=== PATIENT | female | born 1990 | race Hispanic/Latino ===

== ENCOUNTER 2019-12-21 14:33 | Emergency (ER) | payer OTHER, SELFPAY ==
[2019-12-21 14:35] VITALS: BP 135/82; PULSE 87; RESP 17; TEMP 36; O2SAT 99
[2019-12-21 15:15] LABS: Basophils Percent Auto 0.1 % (0.2-1.2); Eosinophils Percent Auto 0.1 % (0-4.4); Hematocrit 38.9 % (37.0-47.0); Hemoglobin 13.2 g/dL (12.0-15.0); Immature Granulocyte Absolute 0.06 K/mm3 (0.00-0.031); Immature Granulocyte Percent A 0.4 % (0-0.5); Lymphocytes Absolute Auto 1.95 K/mm3 (0.9-3.2); Lymphocytes Percent Auto 14.2 % (18.3-44.2); Mean Corpuscular HGB Conc 33.9 g/dl (32-36); Mean Corpuscular Hemoglobin 28.3 pg (26-34); Mean Corpuscular Volume 83.3 fl (80-100); Mean Platelet Volume 10.9 fl (7.4-10.4); Monocytes Absolute Auto 0.5 K/mm3 (0.1-0.6); Monocytes Percent Auto 3.4 % (2.6-8.5); Neutrophils Absolute Auto 11.2 K/mm3 (1.3-6.7); Neutrophils Percent Auto 81.8 % (45.5-73.1); Platelet Count Result 254 k/mm3 (150-375); Red Blood Count 4.67 M/mm3 (4.2-5.4); Red Cell Distribution Width 12.1 % (11.5-14.5); White Blood Count 13.7 K/mm3 (4.5-10.0)
[2019-12-21 15:21] LABS: Add Urine Microscopic? YES; Appearance Urine Cloudy (Clear); Bacteria Urine Trace /hpf; Bilirubin Urine Negative (Negative); Color Urine Yellow (Yellow); Glucose Urine UA Negative (Negative); Ketones Urine 2+ mg/dL (Negative); Leukocyte Esterase Ur 3+ LEU/UL (Negative); Mucus Urine Moderate /lpf; Nitrate Urine Negative (Negative); Protein Urine 1+ mg/dL (Negative); Specific Grav Ur 1.024 (1.001-1.035); Squamous Epithelial Cell Urine Many /hpf (Few); Urobilinogen Urine Negative mg/dL (<2.0); WBC Urine 21-30 /hpf
[2019-12-21 15:22] LABS: Blood Urine Negative (Negative)
[2019-12-21 15:26] LABS: Alanine Aminotransferase 18 U/L (4-35); Albumin Level 4.3 g/dL (3.5-5.1); Alkaline Phosphatase 106 U/L (38-126); Aspartate Amino Transferase 25 U/L (14-36); Bilirubin,Total 0.4 mg/dL (0.2-1.3); Blood Urea Nitrogen 9 mg/dL (7-17); Calcium 9.3 mg/dL (8.4-10.2); Carbon Dioxide 22 mmol/L (22-30); Chloride 102 mmol/L (98-107); Estimated CRCL calculation 191 ml/min; Estimated Glomerular Filt Rate > 60; Glucose 104 mg/dL (65-105); Lipase 54 U/L (23-300); Potassium 3.7 mmol/L (3.4-5.0); Sodium 134 mmol/L (137-145)
[2019-12-21] MEDS: SODIUM CHLORIDE 0.9% IV 1,000 ML 999 ML IV CONT (15:44)
[2019-12-21] MEDS: METOCLOPRAMIDE HCL INJ 10 MG/2 ML VIAL IV PUSH (15:45)
--- NOTE | 2019-12-21 15:45 | ED.GENADULT ---
HPI - General Adult General Chief complaint: Nausea/Vomiting/Diarrhea Stated complaint: , vomitting all day Time Seen by Provider: 12/21/19 15:08 History of Present Illness HPI narrative: Patient is a 29 y/o female complaining of nausea and vomiting for last 2 days. She states that she vomited 4-5 times during last 24 hours. Her vomit is mostly food material. There is no alleviating or exacerbating factor. She has no abdominal pain, diarrhea, dysuria or vaginal bleed. She has a slight headache. Of note, she is approximately 12 week . Related Data Allergies Allergy/AdvReac Type Severity Reaction Status Date / Time No Known Allergies Allergy Verified 12/21/19 14:39 Review of Systems Constitutional: Constitutional: Denies chills, Denies fever(s), Reports headache(s) and Denies weakness Eyes: Eyes: Denies blurry vision ENT: Denies headache(s) and Denies neck pain Cardiovascular: Cardiovascular: Denies chest pain and Denies dyspnea Respiratory: Respiratory: Denies cough and Denies dyspnea Gastrointestinal: Gastrointestinal: Denies abdominal pain, Denies diarrhea, Reports nausea and Reports vomiting Genitourinary: Genitourinary: Denies hematuria and Denies dysuria Musculoskeletal: Musculoskeletal: Denies back pain and Denies neck pain Neurologic: Reports headache(s) and Denies weakness PMFSH Past Medical History Medical History Chlamydia Miscarriage d&c Vaginal delivery Family History Family History Mother Diabetes mellitus Exam Const: General: no acute distress and well developed Orientation/consciousness: oriented to person, oriented to place, oriented to time and patient oriented x3 HENMT: Head: normocephalic Ears: external ears normal General nose exam: Normal external nose present Eyes: General: appearance normal, both eyes and all related structures Conjunctivae: conjunctivae normal Neck: Neck: normal visual inspection and full ROM Chest: Chest palpation & inspection: normal inspection of the chest and no tenderness Resp: Effort & Inspection: normal respiratory effort Auscultation: clear to auscultation bilaterally Cardio: Rate: regular rate Rhythm: regular rhythm GI: GI Palp: No abdominal tenderness and Yes Soft to palpation Skin: General skin exam: normal color and turgor normal Neuro: General: oriented to person, oriented to place, oriented to time and patient oriented x3 Cognition (Neuro): normal cognition Extrem: General: normal to inspection, full ROM and no pedal edema Psych: Appearance: grossly normal Mental Status: mental status grossly normal Affect: normal affect Course Reevaluation(s) Reevaluation #1: Rechecked. Patient feels better. She is able to tolerate oral intake. Date: 12/21/19 Vital Signs Vital signs: Vital Signs Temperature 36.0 C L 12/21/19 14:35 Pulse Rate 87 12/21/19 14:35 Respiratory Rate 17 12/21/19 14:35 Blood Pressure 135/82 12/21/19 14:35 Pulse Oximetry 99 12/21/19 14:35 Temperature 36.0 C L 12/21/19 14:35 Pulse Rate 87 12/21/19 14:35 Respiratory Rate 17 12/21/19 14:35 Blood Pressure 135/82 12/21/19 14:35 Pulse Oximetry 99 12/21/19 14:35 Medical Decision Making Vital Signs Vital Signs: Vital Signs Temperature 36.0 C L 12/21/19 14:35 Pulse Rate 87 12/21/19 14:35 Respiratory Rate 17 12/21/19 14:35 Blood Pressure 135/82 12/21/19 14:35 Pulse Oximetry 99 12/21/19 14:35 Temperature 36.0 C L 12/21/19 14:35 Pulse Rate 87 12/21/19 14:35 Respiratory Rate 17 12/21/19 14:35 Blood Pressure 135/82 12/21/19 14:35 Pulse Oximetry 99 12/21/19 14:35 Lab Data Result diagrams: 12/21/19 15:05 12/21/19 15:05 Labs: Lab Results 12/21/19 12/21/19 12/21/19 Range/Units 15:05 15:05 15:05 WBC 13.7 H (4.5-10.0) K/mm3 RBC 4.67 (4.2
--- NOTE | 2019-12-21 17:00 | PC.NURSE ---
Pt speaking with Dr. Carrion on phone.
[2019-12-21 20:07] VITALS: BP 118/70; PULSE 88; RESP 18; O2SAT 98
== END 2019-12-21 20:08 | disposition home or self-care (01) ==
PROVIDERS: Emergency Medicine; Emergency Provider Emergency Medicine
DX: O21.1 Hyperemesis gravidarum with metabolic disturbance (principal); Z3A.12 12 weeks gestation of pregnancy
CPT/HCPCS: 36415; 80053; 81001; 81025; 83690; 85025; 87086; 96361; 96374; 99284; J2765; J7030

== ENCOUNTER 2020-01-11 17:27 | Emergency (ER) | payer OTHER, SELFPAY ==
[2020-01-11 17:42] VITALS: BP 126/78; PULSE 96; RESP 16; TEMP 35.6; O2SAT 100
--- NOTE | 2020-01-11 17:52 | ED.NAVMDI ---
HPI - Nausea/Vomiting/Diarrhea General Chief complaint: Nausea/Vomiting/Diarrhea <Mervat Owens MD - Last Filed: 01/11/20 19:00> Stated complaint: 15 wks , vomiting <Mervat Owens MD - Last Filed: 01/11/20 19:00> Time Seen by Provider: 01/11/20 17:52 <Mervat Owens MD - Last Filed: 01/11/20 19:00> Source: patient and family <Mervat Owens MD - Last Filed: 01/11/20 19:00> Mode of arrival: ambulatory <Mervat Owens MD - Last Filed: 01/11/20 19:00> Limitations: no limitations <Mervat Owens MD - Last Filed: 01/11/20 19:00> History of Present Illness HPI Narrative: Patient is a G3, P2 currently [address] Arnold who presents for evaluation of nausea and vomiting. Patient reports numerous episodes of nonbloody, nonbilious emesis today. She states that she did not take her antiemetic medication last night and then woke up with extreme nausea this morning, try to take her medication today but then just vomited it up. She denies any abdominal pain, diarrhea or constipation. No vaginal bleeding, pelvic pain or loss of fluids. This has otherwise been uncomplicated aside from her nausea. Patient has had a ultrasound verifying IUP. She is unsure the name of the medication she takes for nausea, but per chart review Reglan is listed. Patient with previous visit to the ER approximately 3 weeks ago for nausea and emesis, patient felt improved following IV hydration and was able to be discharged home. <Mervat Owens MD - Last Filed: 01/11/20 19:00> Related Data Allergies/Adverse reactions: Allergies Allergy/AdvReac Type Severity Reaction Status Date / Time No Known Allergies Allergy Verified 12/21/19 14:39 <Mervat Owens MD - Last Filed: 01/11/20 19:00> Review of Systems Review of Systems: Narrative: CONSTITUTIONAL: Denies fever, chills CARDIOVASCULAR: Denies chest pain RESPIRATORY: Denies cough or dyspnea. GASTROINTESTINAL: Denies abdominal pain, reports nausea and vomiting GENITOURINARY: Denies dysuria or hematuria. SKIN: Denies rash or itching. MUSCULOSKELETAL: Denies back pain, joint pain, or myalgia. NEUROLOGIC: Denies headache, numbness, or weakness. <Mervat Owens MD - Last Filed: 01/11/20 19:00> [facility] Past Medical History Medical History: Medical History Chlamydia Miscarriage d&c Vaginal delivery <Mervat Owens MD - Last Filed: 01/11/20 19:00> Exam Narrative: Exam Narrative: GENERAL: Awake, alert, conversant HEAD: Normocephalic, atraumatic. EYES: PERRLA and EOMI. ENT: Nares clear, no rhinorrhea or epistaxis. Mucous membranes moist. NECK: Supple. CHEST: No respiratory distress, breathing even and non labored HEART: Regular rate, sinus rhythm ABDOMEN: Obese, non distended, non tender, fundus palpable below the umbilicus EXTREMITIES: Normal range of motion. No edema. SKIN: Warm, dry, no rash. NEURO:No focal deficits. Alert and oriented x3 <Mervat Owens MD - Last Filed: 01/11/20 19:00> Course Vital Signs Vital signs: Vital Signs Temperature 35.6 C L 01/11/20 17:42 Pulse Rate 96 01/11/20 17:42 Respiratory Rate 16 01/11/20 17:42 Blood Pressure 126/78 01/11/20 17:42 Pulse Oximetry 100 01/11/20 17:42 Temperature 35.6 C L 01/11/20 17:42 Pulse Rate 94 01/11/20 21:09 Respiratory Rate 16 01/11/20 21:09 Blood Pressure 116/72 01/11/20 21:09 Pulse Oximetry 100 01/11/20 21:09 <Mervat Owens MD - Last Filed: 01/11/20 19:00> Vital Signs Temperature 35.6 C L 01/11/20 17:42 Pulse Rate 96 01/11/20 17:42 Respiratory Rate 16 01/11/20 17:42 Blood Pressure 126/78 01/11/20 17:42 Pulse Oximetry 100 01/11/20 17:42 Temperature 35.6 C L 01/11/20 17:42 Pulse Rate 94 08/11/20 21:09 Respiratory Rate 16 01/11/20 21:09 Blood Pressure 116/72 01/11/20 21:09
[2020-01-11] MEDS: METOCLOPRAMIDE HCL INJ 10 MG/2 ML VIAL IV PUSH (18:14)
[2020-01-11] MEDS: SODIUM CHLORIDE 0.9% IV 1,000 ML 999 ML IV CONT (18:14)
[2020-01-11] MEDS: ONDANSETRON INJ 4 MG/2 ML VIAL IV PUSH (18:14)
[2020-01-11 18:35] LABS: Alanine Aminotransferase 31 U/L (4-35); Albumin Level 4.2 g/dL (3.5-5.1); Alkaline Phosphatase 109 U/L (38-126); Anion Gap 10 mmol/L (8-16); Aspartate Amino Transferase 32 U/L (14-36); Bilirubin,Total 0.4 mg/dL (0.2-1.3); Blood Urea Nitrogen 6 mg/dL (7-17); Calcium 9.2 mg/dL (8.4-10.2); Carbon Dioxide 23 mmol/L (22-30); Chloride 101 mmol/L (98-107); Estimated CRCL calculation 191 ml/min; Estimated Glomerular Filt Rate > 60; Glucose 104 mg/dL (65-105); Lipase 46 U/L (23-300); Potassium 3.9 mmol/L (3.4-5.0); Sodium 134 mmol/L (137-145)
[2020-01-11 18:54] LABS: Basophils Percent Auto 0.1 % (0.2-1.2); Eosinophils Percent Auto 0.2 % (0-4.4); Hematocrit 36.7 % (37.0-47.0); Hemoglobin 12.4 g/dL (12.0-15.0); Immature Granulocyte Absolute 0.12 K/mm3 (0.00-0.031); Immature Granulocyte Percent A 0.8 % (0-0.5); Lymphocytes Absolute Auto 2.24 K/mm3 (0.9-3.2); Mean Corpuscular HGB Conc 33.8 g/dl (32-36); Mean Corpuscular Hemoglobin 28.3 pg (26-34); Mean Corpuscular Volume 83.8 fl (80-100); Mean Platelet Volume 10.9 fl (7.4-10.4); Monocytes Absolute Auto 0.5 K/mm3 (0.1-0.6); Monocytes Percent Auto 3.6 % (2.6-8.5); Neutrophils Percent Auto 80.3 % (45.5-73.1); Platelet Count Result 256 k/mm3 (150-375); Red Blood Count 4.38 M/mm3 (4.2-5.4); Red Cell Distribution Width 12.3 % (11.5-14.5); White Blood Count 14.9 K/mm3 (4.5-10.0)
[2020-01-11 19:25] VITALS: BP 96/43; PULSE 79; RESP 18; O2SAT 100
[2020-01-11 19:29] LABS: Add Urine Microscopic? YES; Appearance Urine Cloudy (Clear); Bacteria Urine Trace /hpf; Bilirubin Urine Negative (Negative); Color Urine Yellow (Yellow); Glucose Urine UA Negative (Negative); Ketones Urine 2+ mg/dL (Negative); Leukocyte Esterase Ur 2+ LEU/UL (Negative); Mucus Urine Rare /lpf; Nitrate Urine Negative (Negative); Protein Urine 1+ mg/dL (Negative); RBC Urine 0-2 /hpf (0-2); Specific Grav Ur 1.019 (1.001-1.035); Squamous Epithelial Cell Urine Many /hpf (Few); Urobilinogen Urine Negative mg/dL (<2.0)
[2020-01-11 19:30] LABS: Blood Urine Negative (Negative)
[2020-01-11] MEDS: DEXTROSE 5%/0.45% SOD CHL 1,000 ML 1000 ML IV CONT (19:31)
[2020-01-11 20:57] VITALS: BP 104/63; PULSE 80; RESP 20; O2SAT 99
[2020-01-11 21:09] VITALS: BP 116/72; PULSE 94; RESP 16; O2SAT 100
== END 2020-01-11 21:14 | disposition home or self-care (01) ==
PROVIDERS: Emergency Medicine; Emergency Provider Emergency Medicine; PCP Obstetrics & Gynecology
DX: O21.9 Vomiting of pregnancy, unspecified (principal); O99.282 Endocrine, nutritional and metabolic diseases complicating pregnancy, second trimester; E86.0 Dehydration; Z3A.15 15 weeks gestation of pregnancy
CPT/HCPCS: 36415; 80053; 81001; 83690; 85025; 87077; 87086; 87088; 96361; 96374; 96375; 99284; J2405; J2765; J7030

== ENCOUNTER 2020-01-17 14:12 | Outpatient (CLI) | payer OTHER, SELFPAY ==
[2020-01-17 15:03] LABS: Basophils Percent Auto 0.2 % (0.2-1.2); Eosinophils Absolute Auto 0.1 K/mm3 (0-0.3); Eosinophils Percent Auto 0.5 % (0-4.4); Hematocrit 33.8 % (37.0-47.0); Hemoglobin 11.4 g/dL (12.0-15.0); Immature Granulocyte Absolute 0.06 K/mm3 (0.00-0.031); Immature Granulocyte Percent A 0.5 % (0-0.5); Lymphocytes Absolute Auto 2.13 K/mm3 (0.9-3.2); Lymphocytes Percent Auto 16.6 % (18.3-44.2); Mean Corpuscular HGB Conc 33.7 g/dl (32-36); Mean Platelet Volume 10.3 fl (7.4-10.4); Monocytes Absolute Auto 0.6 K/mm3 (0.1-0.6); Monocytes Percent Auto 4.8 % (2.6-8.5); Neutrophils Absolute Auto 9.9 K/mm3 (1.3-6.7); Neutrophils Percent Auto 77.4 % (45.5-73.1); Platelet Count Result 253 k/mm3 (150-375); Red Blood Count 4.07 M/mm3 (4.2-5.4); Red Cell Distribution Width 12.4 % (11.5-14.5); White Blood Count 12.8 K/mm3 (4.5-10.0)
[2020-01-17 15:56] LABS: Vitamin D 25 Hydroxy 36.5 ng/mL
[2020-01-17 15:57] LABS: HIV 1/2 Ab P24 Ag Result Negative (Negative)
[2020-01-17 16:19] LABS: Rubella IgG Antibody 8.2 IU/ML
[2020-01-17 16:37] LABS: Hepatitis B Surface Anti Res Positive; Hepatitis C Virus Antibody Negative (Negative)
[2020-01-17 18:14] LABS: Add Urine Microscopic? YES; Appearance Urine Clear (Clear); Bacteria Urine Trace /hpf; Bilirubin Urine Negative (Negative); Blood Urine Negative (Negative); Color Urine Straw (Yellow); Glucose Urine UA Negative (Negative); Ketones Urine Negative (Negative); Leukocyte Esterase Ur 1+ LEU/UL (NEGATIVE); Nitrate Urine Negative (Negative); Protein Urine Negative (Negative); RBC Urine 0-2 /hpf (0-2); Specific Grav Ur 1.011 (1.001-1.035); Squamous Epithelial Cell Urine Few /hpf (Few); Urobilinogen Urine Negative mg/dL (<2.0)
[2020-01-18 07:12] LABS: Rapid Plasma Reagin Non-Reactive (NonReactive)
[2020-01-19 12:57] LABS: Hepatitis B Surface Antigen Negative (Negative)
[2020-01-21 06:31] LABS: Hematocrit 35.1 % (35.0-45.0); Hemoglobin 11.8 g/dL (11.7-15.5); MCH 28.6 pg (27.0-33.0); MCV 84.9 FL (80.0-100.0); RDW 13.3 % (11.0-15.0); Red Blood Cell Count 4.13 Mill/uL (3.80-5.10)
== END 2020-01-17 14:13 | disposition home or self-care (01) ==
PROVIDERS: PCP Obstetrics & Gynecology; Visit Provider Obstetrics & Gynecology
DX: Z34.90 Encounter for supervision of normal pregnancy, unspecified, unspecified trimester (principal)
CPT/HCPCS: 36415; 81001; 82306; 83021; 84443; 85025; 86592; 86703; 86706; 86762; 86787; 86803; 86850; 86900; 86901; 87086; 87088; 87340; G0432

== ENCOUNTER 2020-02-15 13:37 | Outpatient (CLI) | payer OTHER, SELFPAY ==
[2020-02-15 14:07] LABS: Hematocrit 31.9 % (37.0-47.0); Hemoglobin 10.8 g/dL (12.0-15.0); Mean Corpuscular HGB Conc 33.9 g/dl (32-36); Mean Corpuscular Hemoglobin 28.3 pg (26-34); Mean Corpuscular Volume 83.5 fl (80-100); Mean Platelet Volume 10.1 fl (7.4-10.4); Platelet Count Result 235 k/mm3 (150-375); Red Blood Count 3.82 M/mm3 (4.2-5.4); Red Cell Distribution Width 13.6 % (11.5-14.5); White Blood Count 13.2 K/mm3 (4.5-10.0)
[2020-02-15 14:18] LABS: Anion Gap 6 mmol/L (8-16); Blood Urea Nitrogen 9 mg/dL (7-17); Calcium 8.8 mg/dL (8.4-10.2); Carbon Dioxide 23 mmol/L (22-30); Chloride 105 mmol/L (98-107); Estimated Glomerular Filt Rate > 60; Glucose 120 mg/dL (65-105); Potassium 3.9 mmol/L (3.4-5.0); Sodium 134 mmol/L (137-145); Uric Acid 5.3 mg/dL (2.5-7.5)
== END 2020-02-15 13:38 | disposition home or self-care (01) ==
PROVIDERS: PCP Obstetrics & Gynecology; Visit Provider Obstetrics & Gynecology
DX: O16.9 Unspecified maternal hypertension, unspecified trimester (principal)
CPT/HCPCS: 36415; 80048; 84443; 84550; 85027

== ENCOUNTER 2020-02-18 11:40 | Outpatient (CLI) | payer OTHER, SELFPAY ==
[2020-02-18 12:49] LABS: Total Protein Urine Random 11 mg/dL
[2020-02-18 12:50] LABS: Creatinine Urine 63.1 mg/dL
[2020-02-18 12:52] LABS: Creatinine 24 Hour Urine 1.4 gm/24 (0.8-1.8); Total Volume 24 Hour Urine 2350 ml
[2020-02-18 12:53] LABS: Total Protein Urine 24 Hr 258 MG/DAY (28-141); Total Volume 24 Hour Urine 2350 ml
== END 2020-02-18 11:41 | disposition home or self-care (01) ==
PROVIDERS: PCP Obstetrics & Gynecology; Visit Provider Obstetrics & Gynecology
DX: O16.9 Unspecified maternal hypertension, unspecified trimester (principal); Z3A.00 Weeks of gestation of pregnancy not specified
CPT/HCPCS: 81050; 82570; 84156

== ENCOUNTER 2020-03-15 13:37 | Outpatient (CLI) | payer OTHER, SELFPAY ==
[2020-03-15 15:10] LABS: Hematocrit 33.5 % (37.0-47.0); Hemoglobin 11.1 g/dL (12.0-15.0); Mean Corpuscular HGB Conc 33.1 g/dl (32-36); Mean Corpuscular Hemoglobin 28.4 pg (26-34); Mean Corpuscular Volume 85.7 fl (80-100); Mean Platelet Volume 10.3 fl (7.4-10.4); Platelet Count Result 225 k/mm3 (150-375); Red Blood Count 3.91 M/mm3 (4.2-5.4); Red Cell Distribution Width 13.5 % (11.5-14.5); White Blood Count 13.5 K/mm3 (4.5-10.0)
[2020-03-15 15:21] LABS: Glucose 1 Hour PP 50gm Dose 98 mg/dL
== END 2020-03-15 13:38 | disposition home or self-care (01) ==
PROVIDERS: PCP Obstetrics & Gynecology; Visit Provider Obstetrics & Gynecology
DX: Z34.82 Encounter for supervision of other normal pregnancy, second trimester (principal)
CPT/HCPCS: 36415; 82728; 82947; 85027

== ENCOUNTER 2020-05-13 10:06 | Outpatient (CLI) | payer OTHER, SELFPAY ==
[2020-05-13 11:02] LABS: Glucose Point of Care 91 (65-105)
[2020-05-13 12:20] LABS: Glucose 1 Hour PP 50gm Dose 146 mg/dL
[2020-05-13] MEDS: TETANUS,DIPHTHERIA,AC PERTUSSIS ADULT (0.5 ML) BOOSTRIX IM (12:25)
--- NOTE | 2020-05-13 12:42 | PC.NURSE ---
1225- Spoke with Dr. Carrion, 1 hr gtt results reviewed. Dr. Carrion will fax order for 3 hr gtt for patient to complete.
== END 2020-05-13 10:07 | disposition home or self-care (01) ==
LOC: ANHOBOP 10:07
PROVIDERS: Visit Provider Obstetrics & Gynecology
DX: Z23 Encounter for immunization (principal)
CPT/HCPCS: 36415; 82947; 90471; 90653; 90715; G0008

== ENCOUNTER 2020-06-01 07:56 | Outpatient (CLI) | payer OTHER, SELFPAY ==
[2020-06-01 08:39] LABS: Glucose Fasting Gestational 95 mg/dL (>/=95)
[2020-06-01 10:18] LABS: Glucose 1 Hour Gest 157 mg/dL (>/=180)
[2020-06-01 11:10] LABS: Glucose 2 Hour Gest 133 mg/dL (>/= 155)
[2020-06-01 12:11] LABS: Glucose 3 Hour Gest 87 mg/dL (>/=140)
== END 2020-06-01 07:57 | disposition home or self-care (01) ==
PROVIDERS: Visit Provider Obstetrics & Gynecology
DX: R73.09 Other abnormal glucose (principal)
CPT/HCPCS: 36415; 82951; 82952

== ENCOUNTER 2020-06-03 10:14 | Outpatient (RCR) | payer OTHER, SELFPAY ==
[2020-03-18 14:22] LABS: Add Urine Microscopic? YES; Appearance Urine Cloudy (Clear); Bacteria Urine Trace /hpf; Bilirubin Urine Negative (Negative); Blood Urine Negative (Negative); Color Urine Yellow (Yellow); Glucose Urine UA Negative (Negative); Ketones Urine Negative (Negative); Leukocyte Esterase Ur Trace LEU/UL (Negative); Mucus Urine Rare /lpf; Nitrate Urine Negative (Negative); Protein Urine Negative (Negative); RBC Urine 0-2 /hpf (0-2); Specific Grav Ur 1.013 (1.001-1.035); Squamous Epithelial Cell Urine Many /hpf (Few); Urobilinogen Urine Negative mg/dL (<2.0)
[2020-03-18 14:47] VITALS: BP 105/65; PULSE 83
[2020-05-13 12:24] VITALS: BP 116/66; PULSE 84
--- NOTE | 2020-05-13 12:43 | PC.NURSE ---
1225- Spoke with Dr. Carrion about NST with variables, XOCHILT. Orders to discharge to home with twice weekly nsts and once weekly xochilt's.
[2020-05-16 14:16] VITALS: BP 116/67; PULSE 104
[2020-05-19 09:30] VITALS: BP 123/74; PULSE 97
[2020-05-23 13:50] VITALS: BP 111/77; PULSE 110
--- NOTE | ~2020-06-03 | US_ITS ---
EXAMINATION: US OB limited DATE: 05/13/2020 11:27 INDICATION: Increased amniotic fluid seen at outside institution during third trimester . TECHNIQUE: Real-time ultrasound of the pelvis was performed. The interpreting radiologist was not pre sent for the study. COMPARISON: None. FINDINGS: There is a single living fetus in vertex presentation. The placenta is posterior. heart rate i s 135 beats per minute (bpm). The amniotic fluid index is 20.8 cm, which is normal (5th%-95%: 8.3-24. 5 cm at 33 weeks estimated gestational age). IMPRESSION: 1. Single living fetus in vertex presentation with heart rate of 135 bpm. 2. Normal amniotic fluid index of 20.8 cm. Reviewed, dictated and finalized at location A. STANT SUPERINTENDENT IMPRESSION: 1. Single living fetus in vertex presentation with heart rate of 135 bpm . 2. Normal amniotic fluid index of 20.8 cm.
--- NOTE | ~2020-06-03 | US_ITS ---
EXAMINATION: US OB limited DATE: 06/03/2020 11:08 INDICATION: Hypertension during third trimester . TECHNIQUE: Real-time ultrasound of the pelvis was performed. The interpreting radiologist was not pre sent for the study. COMPARISON: 05/19/2020 FINDINGS: There is a single living fetus in vertex presentation. The placenta is right posterior. heart rate is 139 beats per minute (bpm). The amniotic fluid index is 15.7 cm, which is normal (5th%-95%: 7 .7-24.9 cm at 36 weeks estimated gestational age). IMPRESSION: 1. Single living fetus in vertex presentation with heart rate of 139 bpm. 2. Normal amniotic fluid index of 15.7 cm. Reviewed, dictated and finalized at location A. BING ASSEMBLER IMPRESSION: 1. Single living fetus in vertex presentation with heart rate of 139 bpm . 2. Normal amniotic fluid index of 15.7 cm.
--- NOTE | ~2020-06-03 | US_ITS ---
EXAMINATION: US OB limited DATE: 05/19/2020 09:46 INDICATION: Abnormal blood sugar. Third trimester. TECHNIQUE: Real-time ultrasound of the pelvis was performed. COMPARISON: Ultrasound 05/13/2020 FINDINGS: There is a single fetus in vertex presentation. The placenta is posterior. heart rate is 144 b eats per minute (bpm). The amniotic fluid index is 23.0 cm, which is normal. IMPRESSION: 1. Single living fetus in vertex presentation. Reviewed, dictated and finalized at location A. R ASSEMBLER
[2020-06-03 11:54] VITALS: BP 105/61; PULSE 100
== END 2020-06-16 23:59 | disposition home or self-care (01) ==
LOC: ANHOBOP 10:14
PROVIDERS: Visit Provider Obstetrics & Gynecology
DX: O36.8120 Decreased fetal movements, second trimester, not applicable or unspecified (principal); Z3A.25 25 weeks gestation of pregnancy; Z3A.33 33 weeks gestation of pregnancy; Z3A.34 34 weeks gestation of pregnancy; Z3A.36 36 weeks gestation of pregnancy
CPT/HCPCS: 59025; 76815; 81001

== ENCOUNTER 2020-06-15 19:53 | Inpatient (IN) | payer OTHER, SELFPAY ==
[2020-06-15] VITALS (15 sets, daily range): BP systolic 91–121; BP diastolic 55–84; PULSE 75–130; BMI 44.1
[2020-06-15 20:29] LABS: Basophils Percent Auto 0.2 % (0.2-1.2); Eosinophils Absolute Auto 0.1 K/mm3 (0-0.3); Eosinophils Percent Auto 1.1 % (0-4.4); Hematocrit 34.6 % (37.0-47.0); Hemoglobin 11.7 g/dL (12.0-15.0); Immature Granulocyte Absolute 0.07 K/mm3 (0.00-0.031); Immature Granulocyte Percent A 0.6 % (0-0.5); Lymphocytes Absolute Auto 2.32 K/mm3 (0.9-3.2); Lymphocytes Percent Auto 19.1 % (18.3-44.2); Mean Corpuscular HGB Conc 33.8 g/dl (32-36); Mean Corpuscular Hemoglobin 28.3 pg (26-34); Mean Corpuscular Volume 83.6 fl (80-100); Mean Platelet Volume 10.2 fl (7.4-10.4); Monocytes Absolute Auto 0.8 K/mm3 (0.1-0.6); Monocytes Percent Auto 6.8 % (2.6-8.5); Neutrophils Absolute Auto 8.8 K/mm3 (1.3-6.7); Neutrophils Percent Auto 72.2 % (45.5-73.1); Platelet Count Result 227 k/mm3 (150-375); Red Blood Count 4.14 M/mm3 (4.2-5.4); Red Cell Distribution Width 13.7 % (11.5-14.5); White Blood Count 12.1 K/mm3 (4.5-10.0)
[2020-06-15] MEDS: DINOPROSTONE 10 MG VAG INSERT VAGINAL (20:40)
--- NOTE | 2020-06-15 20:52 | LDADM ---
This patient, Giselle Lopez, was admitted to Labor/Delivery/Recovery 103 on 06/15/20 at 19:53. Plans for labor, pain management and were discussed with patient. Patient/family oriented to hospital policies and general routines including ID bracelet, bed and alarms, visiting hours, pain management, procedures, bathroom and other care routines, personal items, smoking policy, room service/diet and guest tray routines, security routines, and visiting hours. Patient/Family are encouraged to report perceived risks to care and to ask questions if they do not understand what they are told or what they should do. See OBIX for further documentation.
[2020-06-15 22:07] LABS: HIV 1/2 Ab P24 Ag Result Negative (Negative)
[2020-06-16] VITALS (101 sets, daily range): BP systolic 81–135; BP diastolic 37–119; PULSE 57–137; RESP 16; TEMP 36.3–36.7; O2SAT 94–100
--- NOTE | 2020-06-16 07:09 | WPDANESEPP ---
Anes - Eval Pre Procedure Procedure: labor epidural Date/Time: 06/16/20 07:09 Surgeon: Murali Pre Op Diagnosis: IOL Patient Data Age: 29 Gender: F Height: 5 ft 7 in Weight: 128 kg Last Vital Signs Pulse 99 06/16/20 01:01 BP 129/91 H 06/16/20 01:01 Allergies Allergy/AdvReac Type Severity Reaction Status Date / Time No Known Allergies Allergy Verified 06/14/20 13:50 Home Medications Medication Instructions Recorded Confirmed Type prenat.vits,carlos,[id number] 1 tablet PO DAILY 02/15/20 06/16/20 History ferrous sulfate 325 mg PO DAILY 03/18/20 06/16/20 History Laboratory Tests 06/15/20 06/15/20 06/15/20 20:16 20:16 20:16 WBC 12.1 K/mm3 H K/mm3 (4.5-10.0) RBC 4.14 M/mm3 L M/mm3 (4.2-5.4) Hgb 11.7 g/dL L g/dL (12.0-15.0) Hct 34.6 % L % (37.0-47.0) MCV 83.6 fl fl (80-100) MCH 28.3 pg pg (26-34) MCHC 33.8 g/dl g/dl (32-36) RDW 13.7 % % (11.5-14.5) Plt Count 227 k/mm3 k/mm3 (150-375) MPV 10.2 fl fl (7.4-10.4) Immature Gran % (Auto) 0.6 % H % (0-0.5) Neut % (Auto) 72.2 % % (45.5-73.1) Lymph % (Auto) 19.1 % % (18.3-44.2) Lassen % (Auto) 6.8 % % (2.6-8.5) Eos % (Auto) 1.1 % % (0-4.4) Baso % (Auto) 0.2 % % (0.2-1.2) Lymph # (Auto) 2.32 K/mm3 K/mm3 (0.9-3.2) Lassen # (Auto) 0.8 K/mm3 H K/mm3 (0.1-0.6) Eos # (Auto) 0.1 K/mm3 K/mm3 (0-0.3) Baso # (Auto) 0.0 K/mm3 K/mm3 (0.0-0.1) Abs Immat Gran (auto) 0.07 K/mm3 H K/mm3 (0.00-0.031) Absolute Neuts (auto) 8.8 K/mm3 H K/mm3 (1.3-6.7) Absolute Nucleated RBC 0.0 K/mm3 K/mm3 (0.0-0.012) Nucleated RBC % 0.0 % % (0.0-0.2) RPR Pending HIV 1&2 Ab/P24 Ag 4thGn Blood Type A Positive Antibody Screen Negative 06/15/20 20:16 WBC RBC Hgb Hct MCV MCH MCHC RDW Plt Count MPV Immature Gran % (Auto) Neut % (Auto) Lymph % (Auto) Lassen % (Auto) Eos % (Auto) Baso % (Auto) Lymph # (Auto) Lassen # (Auto) Eos # (Auto) Baso # (Auto) Abs Immat Gran (auto) Absolute Neuts (auto) Absolute Nucleated RBC Nucleated RBC % RPR HIV 1&2 Ab/P24 Ag 4thGn Negative (Negative) Blood Type Antibody Screen : gestational age (K[facility] 06/30/20) Patient hx anesthesia problems: none Family hx anesthesia problems: none [facility] Past Medical History Medical History (Updated 06/16/20 @ 07:09 by Isidro Ortiz CRNA) Chlamydia Miscarriage d&c Morbid obesity Vaginal delivery Family History Family History Mother Diabetes mellitus Social History Social History Smoking status: Never smoker Substance use: never Gender identity (if verbalized by the patient): Female Spiritual care concerns: No Exam Day of Procedure 06/16/20 07:09 Patient weight: morbidly obese Heart: regular rate and rhythm Lungs: clear to auscultation and normal air movement Neurological: alert and oriented
--- NOTE | 2020-06-16 07:53 | PM.IMHP ---
H&P: HPI History of Present Illness Date/Time: 06/16/20 07:53 Chief Complaint: Medical induction of labor Narrative: Giselle Lopez is a 29 year old female admitted for MIL for LGA. LMP 09/24/19 EDC 06/30/20 consistent with 20 week ultrasound. She has been followed by [facility] and they recommended MIL at 38 weeks due to higher risk factor for demise poor outcome with the LGA and BMI. She has been informed of risk and benefits of labor induction versus spontaneous labor and she desires induction. PNC also significant for polyhydramnios which did resolve. She had normal glucose testing at 24-28 weeks and then had another one hour with diagnosis of polyhydramnios. It was elevated and the three hour was normal. Labs reviewed. GBS neg. Review of Systems Review of Systems: All systems reviewed & are unremarkable except as noted in HPI and below Constitutional: Constitutional: Reports no additional constitutional complaints and Denies headache(s) Eyes: Eyes: Denies spots in vision ENT: Reports system reviewed and no additional complaints, except as documented and Denies headache(s) Cardiovascular: Cardiovascular: Denies chest pain and Denies dyspnea Respiratory: Respiratory: Denies dyspnea Gastrointestinal: Gastrointestinal: Reports no additional gastrointestinal complaints Genitourinary: Genitourinary: Reports amenorrhea Musculoskeletal: Musculoskeletal: Reports no additional musculoskeletal complaints Integumentary/Breasts: Skin/Breast: Denies breast mass and Denies rash Neurologic: Denies headache(s) Psychiatric: Psychiatric: Reports no additional psychiatric complaints PMFSH Past Medical History Medical History Chlamydia Miscarriage d&c Morbid obesity Vaginal delivery Family History Family History Mother Diabetes mellitus Social History Social History Smoking status: Never smoker Substance use: never Gender identity (if verbalized by the patient): Female Spiritual care concerns: No Meds Home Medications and Allergies Home Medications Medication Instructions Recorded Confirmed Type prenat.vits,carlos,[id number] 1 tablet PO DAILY 02/15/20 06/16/20 History ferrous sulfate 325 mg PO DAILY 03/18/20 06/16/20 History Allergies Allergy/AdvReac Type Severity Reaction Status Date / Time No Known Allergies Allergy Verified 06/14/20 13:50 Vital Signs Vital Signs - 24 hr 06/15/20 20:17 06/15/20 20:31 06/15/20 20:46 Pulse Rate 130 H 123 H 93 Blood Pressure 91/66 L 99/71 L 101/65 06/15/20 21:01 06/15/20 21:16 06/15/20 21:31 Pulse Rate 97 101 H 75 Blood Pressure 105/67 105/78 110/62 06/15/20 21:46 06/15/20 22:01 06/15/20 22:16 Pulse Rate 100 78 89 Blood Pressure 109/84 106/63 116/55 L 06/15/20 22:31 06/15/20 22:46 06/15/20 23:01 Pulse Rate 104 H 85 89 Blood Pressure 101/77 120/73 120/78 06/15/20 23:16 06/15/20 23:31 06/15/20 23:46 Pulse Rate 112 H 96 90 Blood Pressure 104/64 109/77 121/76 06/16/20 00:01 06/16/20 00:16 06/16/20 00:31 Pulse Rate 103 H 118 H 86 Blood Pressure 116/71 118/66 115/86 06/16/20 00:46 06/16/20 01:01 Pulse Rate 90 99 Blood Pressure 117/72 129/91 H Exam Const: General: no acute distress Eyes: General: appearance normal, both eyes and all related structures Resp: Effort & Inspection: normal respiratory effort Cardio: Rate: regular rate GI: Other: Gravid no fundal tenderness no right upper quadrant pain Skin: General skin exam: no rashes or lesions noted Neuro: Cognition (Neuro): normal cognition Extrem: General: normal to inspection Psych: Mental Status: mental status grossly normal H&P: Results Labs Labs: Short CBC 06/15/20 Range/Units 20:16 WBC 12.1 H (4.5-10.0) K/mm3 Hgb 11.7 L (12.0-15.0) g/dL Hct 34.6 L
--- NOTE | 2020-06-16 08:08 | PM.OBPNLAB ---
Pain Control Date/time seen: 06/16/20 08:08 FHT 140, Cat 1, irreg ctx, she rates as 8. Cervidil removed. Cervix 2.5/75/-2. AROM clear. She desires epidural.
[2020-06-16] MEDS: LACTATED RINGERS 1,000 ML 125 ML IV CONT ×3 (08:09→11:10)
[2020-06-16] MEDS: OXYTOCIN 30 UNITS/NS 500 ML 30 UNITS/500 ML BAG IV CONT (10:00)
[2020-06-16 10:23] LABS: Rapid Plasma Reagin Non-Reactive (NonReactive)
[2020-06-16] MEDS: OXYTOCIN 30 UNITS/NS 500 ML 30 UNITS/500 ML BAG 125 UNITS IV CONT (15:01)
--- NOTE | 2020-06-16 15:13 | P.PCNOB_ITS ---
OB - Delivery Note Procedure Delivery date: 06/16/20 Procedure: Spontaneous vaginal delivery. events: Labor Induction and Polyhydramnios Induction method: per cervidil protocol Delivery augmentation: rupture of membranes and pitocin Delivery monitor: external FHT Route of delivery: Indication for instrumentation: other (1.Large for gestational age 2. Large BMI) Laceration Description: Perineal - 1st Degree Delivery repair: vicryl (3.0) Specimen: No Quantitative Blood Loss (ml): 150 Anesthesia type: Epidural Disposition: floor Complications: None Narrative: Patient admitted for [facility] for LGA/ large BMI due to increase risk of distress, demise per [facility] recommendation. Patient agreed to induction. She presented on 06/15/20 for cervidil. Cervidil was removed am of 06/16/20 after 11 hours. Cervix was 2/75%/-2. She had AROM 0800 clear. She received epidural. She progressed to active labor. She delivered a female . was vigorously crying. She was placed on maternal abdomen. Delayed cord clamping aftetr 30sec and cord apulsatile. Placenta delivered spontenously and intact. Small first degree laceration repaired with 3.0 vicryl interrupted. Hemostasis noted. Patient tolerated procedure well. Baby Date of : 06/16/20 Time of : 14:45 Weeks of gestation at delivery: 38 Infant gender: Female Weight (pounds): 7 Weight (ounces): 15 presentation: vertex position: Right Occiput Anterior Placenta delivery description: Spontaneous cord vessel description: Clamped/Cut and Delayed Cord Clamping score one minute: 9 score five minutes: 9
[2020-06-16] MEDS: BENZOCAINE 20% AER SPR (*SP) 56 GM CAN 1 SPRAY TOPICAL (15:34)
[2020-06-16] MEDS: WITCH HAZEL 40 PADS 1 PAD TOPICAL (15:34)
--- NOTE | 2020-06-16 17:20 | PC.NURSE ---
Patient transferred to post room #282 via wheelchair. Support person present. Oriented to unit, room, information board, rooming in, admission packet and security measures. Patient verbalizes understanding.
[2020-06-17] MEDS: IBUPROFEN 600 MG TABLET PO (04:46)
[2020-06-17 05:33] LABS: Hematocrit 33.6 % (37.0-47.0); Hemoglobin 11.4 g/dL (12.0-15.0)
[2020-06-17 06:45] VITALS: BP 117/82; PULSE 71; RESP 16; TEMP 36.4; O2SAT 100
[2020-06-17] MEDS: MULTIVIT/MIN/PREN/FOL AC/IRON TABLET 1 TAB PO (06:54)
--- NOTE | 2020-06-17 08:38 | WPDANLDPN2 ---
Anes-Prog Note L&D Date/Time: 06/17/20 08:38 Comfortable throughout: labor and delivery Neuraxial method: epidural Epidural/Spinal procedure site: clean & non-tender Neuro status: Neuro function grossly intact. Cardiovascular status: normal Respiratory status: normal Airway patency: baseline Mental status: baseline Post-Op hydration status: normal Vital Signs: Last Vital Signs Temp 36.4 C 06/17/20 06:45 Pulse 71 06/17/20 06:45 Resp 16 06/17/20 06:45 BP 117/82 06/17/20 06:45 Pulse Ox 100 06/17/20 06:45 Pain score (VAS): 3 Post-procedural complaints: none Patient feedback: Patient satisfied with anesthetic care.
--- NOTE | 2020-06-17 09:13 | PM.OBPNVD ---
OB - PN: Subj Subjective Date/time seen: 06/17/20 09:13 Patient doing well this AM. Pain well controlled with medication. Denies any headache, chest pain, SOB, N/V. Minimal lochia. Ambulating without difficulty. OB - PN: Obj Data Labs CBC & Chem 7: 06/17/20 04:41 Labs: Laboratory Results - last 24 hr 06/15/20 06/17/20 20:16 04:41 Hgb 11.4 L Hct 33.6 L RPR Non-reactive OB - PN A/P Assessment and Plan (1) Normal spontaneous vaginal delivery: Code(s): O80 - Encounter for full-term uncomplicated delivery Status: Acute Assessment and Plan: PPD#1 doing well continue routine care requesting PPD#1 discharge if infant cleared, which I think is reasonable emergency precautions reviewed f/u in office in 4-6 weeks for visit Time Spent With Patient Time: Total time spent is greater than 50% in coordination of care (as documented) at patient's floor/unit and/or counseling patient: Exam Const: General: cooperative, healthy appearing, comfortable and no acute distress GI: Inspection: non-distended and obesity GI Palp: Yes Soft to palpation and No Tenderness to palpation present (GI) Other: fundus firm below umbilicus Extrem: Right lower extremity: no edema Left lower extremity: no edema Other: no calf tenderness
--- NOTE | 2020-06-17 09:15 | PM.OBDSVD ---
DS: Admitting Diagnosis Admitting Diagnosis Admitting Diagnosis: induction of labor OB - DS: Summary OB Procedures : None OB Procedures Intrapartum: Spontaneous Vag Delivery OB Procedures: : None Time Spent with Patient Time attestation: Total time spent providing and/or coordinating discharge services: DS: Data Data Completed and Pending Labs on day of discharge: Labs from last 24 hours 06/17/20 06/15/20 04:41 20:16 Hgb 11.4 L Hct 33.6 L RPR Non-reactive Discharge Plan Discharge Attending physician on discharge: Alix Pal Discharging Clinician: Alix Pal Anticipated Discharge Date/Time: 06/17/20 09:16 Patient Disposition: Home, Self-Care Activity: as tolerated and pelvic rest Diet: regular Discharge Instructions: Call office ([phone]) to schedule a visit in 4-6 weeks. You may take Ibuprofen 600mg every 6 hours as needed for pain. Pain medication may make you constipated. It may be helpful to take an [id number] stool softener, such as Colace and/or Senokot, along with the pain medication to help lessen constipation. Call office or go to ED for pain not controlled with medication, headache, chest pain, shortness of breath, fever, chills, persistent nausea or vomiting, severe abdominal pain, heavy vaginal bleeding >2 pads/hour, foul vaginal discharge or odor, or problems with your breasts. Patient Instructions: Antibiotic Form Stand Alone Forms: General Discharge Information Follow-up/Referrals: Ariel Carrion MD [Physician] - Discharge Medications: Continued prenat.vits,carlos,[id number] Tablet 1 tablet PO DAILY RF: 0 Discontinued ferrous sulfate 325 mg (65 mg iron) Tablet 325 mg PO DAILY RF: 0 Date of admission: 06/15/20 19:53 Primary Care Provider: PHYSICIAN,AIR OPERATIONS MANAGER Admitting Provider: Ariel Carrion Attending physician on admission: Ariel Carrion Condition: Stable
[2020-06-17] MEDS: MEASLES,MUMPS,RUBELLA VACCINE 0.5 ML VIAL SUB-Q (14:07)
[2020-06-19 10:02] VITALS: BP 123/87; PULSE 76; RESP 20; TEMP 36.6; O2SAT 99
== END 2020-06-17 16:15 | disposition home or self-care (01) | DRG 807 ==
LOC: ANHOB2 06-17 09:17 → ANHLDR 06-20 11:28 → ANHOB2 06-20 11:28
PROVIDERS: Admitting Provider Obstetrics & Gynecology; Visit Provider Student in an Organized Health Care Education/Training Program
DX: O36.63X0 Maternal care for excessive fetal growth, third trimester, not applicable or unspecified (principal); Z37.0 Single live birth; Z3A.38 38 weeks gestation of pregnancy; O36.8330 Maternal care for abnormalities of the fetal heart rate or rhythm, third trimester, not applicable or unspecified; O70.0 First degree perineal laceration during delivery; O99.214 Obesity complicating childbirth; E66.01 Morbid (severe) obesity due to excess calories; O40.3XX0 Polyhydramnios, third trimester, not applicable or unspecified
CPT/HCPCS: 36415; 85014; 85018; 85025; 86592; 86703; 86850; 86900; 86901; 90710; A9270; G0432; J2590; J2795; J7120

== ENCOUNTER 2021-10-18 11:11 | Outpatient (CLI) | payer OTHER, SELFPAY ==
[2021-10-20 11:16] LABS: Progesterone 8.5 ng/mL (***)
== END 2021-10-18 11:12 | disposition home or self-care (01) ==
LOC: ANHLAB 11:13
PROVIDERS: Visit Provider Obstetrics & Gynecology
DX: N91.2 Amenorrhea, unspecified (principal)
CPT/HCPCS: 36415; 84144; 84702

== ENCOUNTER 2021-11-06 11:10 | Outpatient (CLI) | payer OTHER, SELFPAY ==
[2021-11-06 11:39] LABS: Appearance Urine Slightly Cloudy (Clear); Bilirubin Urine Negative (Negative); Color Urine Yellow (Yellow); Glucose Urine UA Negative (Negative); Ketones Urine Negative (Negative); Leukocyte Esterase Ur Trace LEU/UL (NEGATIVE); Nitrate Urine Negative (Negative); Protein Urine Negative (Negative); Urobilinogen Urine 0.2 mg/dL (<2.0)
[2021-11-06 11:46] LABS: Add Urine Microscopic? YES; Blood Urine Trace-Intact (Negative); RBC Urine 0-2 /hpf (0-2); Squamous Epithelial Cell Urine Few /hpf (Few)
[2021-11-06 11:47] LABS: Basophils Percent Auto 0.3 % (0.2-1.2); Eosinophils Absolute Auto 0.1 K/mm3 (0-0.3); Hematocrit 38.4 % (37.0-47.0); Hemoglobin 12.9 g/dL (12.0-15.0); Immature Granulocyte Absolute 0.03 K/mm3 (0.00-0.031); Immature Granulocyte Percent A 0.3 % (0-0.5); Lymphocytes Absolute Auto 2.93 K/mm3 (0.9-3.2); Mean Corpuscular HGB Conc 33.6 g/dl (32-36); Mean Corpuscular Volume 83.5 fl (80-100); Mean Platelet Volume 10.4 fl (7.4-10.4); Monocytes Absolute Auto 0.7 K/mm3 (0.1-0.6); Monocytes Percent Auto 6.4 % (2.6-8.5); Neutrophils Absolute Auto 7.4 K/mm3 (1.3-6.7); Platelet Count Result 287 k/mm3 (150-375); Red Cell Distribution Width 12.4 % (11.5-14.5); White Blood Count 11.3 K/mm3 (4.5-10.0)
[2021-11-06 12:20] LABS: Vitamin D 25 Hydroxy 30.8 ng/mL
[2021-11-06 12:44] LABS: Hepatitis B Surface Antigen Negative (Negative)
[2021-11-06 12:51] LABS: Hepatitis C Virus Antibody Negative (Negative)
[2021-11-06 14:16] LABS: Rapid Plasma Reagin Non-Reactive (NonReactive)
== END 2021-11-06 11:11 | disposition home or self-care (01) ==
PROVIDERS: Visit Provider Obstetrics & Gynecology
DX: Z34.90 Encounter for supervision of normal pregnancy, unspecified, unspecified trimester (principal)
CPT/HCPCS: 36415; 81001; 82306; 84443; 85025; 86592; 86762; 86787; 86803; 86900; 86901; 87077; 87086; 87186; 87340

== ENCOUNTER 2022-01-03 13:21 | Outpatient (CLI) | payer OTHER, SELFPAY ==
[2022-01-03 15:34] LABS: HIV 1/2 Ab P24 Ag Result Negative (Negative)
[2022-01-03 16:56] LABS: Rubella IgG Antibody 19.6 IU/ML
== END 2022-01-03 13:22 | disposition home or self-care (01) ==
LOC: ANHLAB 13:23
PROVIDERS: Visit Provider Obstetrics & Gynecology
DX: Z34.92 Encounter for supervision of normal pregnancy, unspecified, second trimester (principal); Z3A.00 Weeks of gestation of pregnancy not specified
CPT/HCPCS: 36415; 86703; 86762; 86850; G0432

== ENCOUNTER 2022-03-21 11:03 | Outpatient (CLI) | payer OTHER, SELFPAY ==
[2022-03-21 12:34] LABS: Basophils Percent Auto 0.1 % (0.2-1.2); Eosinophils Absolute Auto 0.2 K/mm3 (0-0.3); Eosinophils Percent Auto 1.4 % (0-4.4); Hematocrit 34.2 % (37.0-47.0); Hemoglobin 11.2 g/dL (12.0-15.0); Immature Granulocyte Absolute 0.06 K/mm3 (0.00-0.031); Immature Granulocyte Percent A 0.5 % (0-0.5); Lymphocytes Absolute Auto 2.13 K/mm3 (0.9-3.2); Lymphocytes Percent Auto 18.1 % (18.3-44.2); Mean Corpuscular HGB Conc 32.7 g/dl (32-36); Mean Corpuscular Hemoglobin 28.2 pg (26-34); Mean Corpuscular Volume 86.1 fl (80-100); Mean Platelet Volume 9.8 fl (7.4-10.4); Monocytes Absolute Auto 0.6 K/mm3 (0.1-0.6); Monocytes Percent Auto 4.9 % (2.6-8.5); Neutrophils Absolute Auto 8.8 K/mm3 (1.3-6.7); Platelet Count Result 255 k/mm3 (150-375); Red Blood Count 3.97 M/mm3 (4.2-5.4); Red Cell Distribution Width 13.4 % (11.5-14.5); White Blood Count 11.7 K/mm3 (4.5-10.0)
[2022-03-21 12:45] LABS: Glucose 1 Hour PP 50gm Dose 144 mg/dL
== END 2022-03-21 11:04 | disposition home or self-care (01) ==
PROVIDERS: Visit Provider Obstetrics & Gynecology
DX: Z34.82 Encounter for supervision of other normal pregnancy, second trimester (principal)
CPT/HCPCS: 36415; 82947; 85025

== ENCOUNTER 2022-06-01 05:06 | Observation (INO) | payer OTHER, SELFPAY ==
[2022-06-01 04:38] VITALS: BP 125/82; PULSE 82
[2022-06-01 05:07] VITALS: BMI 47.7
--- NOTE | 2022-06-01 05:07 | LDADM ---
This patient, Giselle Lopez, was admitted to Labor/Delivery/Recovery 108 on 06/01/22 at 04:18. Plans for labor, pain management and were discussed with patient. Patient/family oriented to hospital policies and general routines including ID bracelet, bed and alarms, visiting hours, pain management, procedures, bathroom and other care routines, personal items, smoking policy, room service/diet and guest tray routines, security routines, and visiting hours. Patient/Family are encouraged to report perceived risks to care and to ask questions if they do not understand what they are told or what they should do. See OBIX for further documentation.
[2022-06-01 08:14] VITALS: BP 110/69; PULSE 82
--- NOTE | 2022-06-21 09:07 | PM.OBTRLD ---
OB - Triage/Final Diagnosis Visit Information Comments/Additional reasons for admission: I have assessed the risk for this patient, Giselle Lopez, and determined that she would benefit from observation care. Final Diagnosis (1) False labor: Code(s): O47.9 - False labor, unspecified Status: Acute
== END 2022-06-01 08:25 | disposition home or self-care (01) ==
PROVIDERS: Admitting Provider Obstetrics & Gynecology; Visit Provider Obstetrics & Gynecology
DX: O47.1 False labor at or after 37 completed weeks of gestation (principal); Z3A.37 37 weeks gestation of pregnancy
CPT/HCPCS: G0378; G0379

== ENCOUNTER 2022-06-06 11:40 | Outpatient (RCR) | payer OTHER, SELFPAY ==
[2022-05-28 11:22] VITALS: BP 126/79; PULSE 96
[2022-06-03 10:57] VITALS: BP 121/79; PULSE 105
[2022-06-05 20:15] VITALS: BP 136/80; PULSE 90
--- NOTE | 2022-06-05 20:21 | PC.NURSE ---
Dr. Patiño called via senior underwriter and informed that patient came in due to decreased movement and has felt movement since arrival, CAT1 tracing with one contraction noted. Orders that patient may discharge to home.
--- NOTE | ~2022-06-06 | US_ITS ---
EXAMINATION: US OB limited w BPP DATE: 06/06/2022 13:49 INDICATION: Decreased movement. Third trimester. TECHNIQUE: Real-time pelvic ultrasound was performed. COMPARISON: None. FINDINGS: There is a single living fetus in vertex presentation. The placenta is posterior. heart rate i s 126 beats per minute (bpm). The amniotic fluid index is 15.7 cm, which is normal. Biophysical profile performed by the technologist: breathing (30 sec sustained breathing in 30 minutes): 2 out of 2 movement (3 gross body movements in 30 minutes): 2 out of 2 tone (one episode of ocmkerj-pkkvaanfd-zbjtydf limb movement): 2 out of 2 Amniotic fluid pocket (2 cm): 2 out of 2 Total score: 8 out of 8 IMPRESSION: 1. Single living fetus in vertex presentation. 2. Biophysical profile 8 out of 8. Reviewed, dictated and finalized at location A. RMATION ASSURANCE ANALYST
[2022-06-06 13:30] VITALS: BP 116/84; PULSE 101
== END 2022-06-29 07:47 | disposition home or self-care (01) ==
LOC: ANHOBOP 11:40
PROVIDERS: Visit Provider Obstetrics & Gynecology
DX: O36.63X0 Maternal care for excessive fetal growth, third trimester, not applicable or unspecified (principal); Z3A.37 37 weeks gestation of pregnancy; O99.213 Obesity complicating pregnancy, third trimester; O36.8130 Decreased fetal movements, third trimester, not applicable or unspecified; Z3A.38 38 weeks gestation of pregnancy
CPT/HCPCS: 59025; 76815; 76819

== ENCOUNTER 2022-06-10 06:37 | Inpatient (IN) | payer OTHER, SELFPAY ==
[2022-06-10] VITALS (130 sets, daily range): BP systolic 79–138; BP diastolic 20–99; PULSE 25–122; RESP 16–18; TEMP 36.2–37.1; O2SAT 93–100; BMI 46.0
--- NOTE | 2022-06-10 07:10 | LDADM ---
This patient, Giselle Lopez, was admitted to Labor/Delivery/Recovery 107 on 06/10/22 at 06:37. Plans for labor, pain management and were discussed with patient. Patient/family oriented to hospital policies and general routines including ID bracelet, bed and alarms, visiting hours, pain management, procedures, bathroom and other care routines, personal items, smoking policy, room service/diet and guest tray routines, security routines, and visiting hours. Patient/Family are encouraged to report perceived risks to care and to ask questions if they do not understand what they are told or what they should do. See OBIX for further documentation.
[2022-06-10 07:26] LABS: Basophils Percent Auto 0.4 % (0.2-1.2); Eosinophils Absolute Auto 0.2 K/mm3 (0-0.3); Eosinophils Percent Auto 1.9 % (0-4.4); Hematocrit 34.2 % (37.0-47.0); Hemoglobin 11.1 g/dL (12.0-15.0); Immature Granulocyte Absolute 0.07 K/mm3 (0.00-0.031); Immature Granulocyte Percent A 0.6 % (0-0.5); Lymphocytes Absolute Auto 2.38 K/mm3 (0.9-3.2); Lymphocytes Percent Auto 21.5 % (18.3-44.2); Mean Corpuscular HGB Conc 32.5 g/dl (32-36); Mean Corpuscular Hemoglobin 27.3 pg (26-34); Monocytes Absolute Auto 0.7 K/mm3 (0.1-0.6); Neutrophils Absolute Auto 7.7 K/mm3 (1.3-6.7); Neutrophils Percent Auto 69.6 % (45.5-73.1); Platelet Count Result 257 k/mm3 (150-375); Red Blood Count 4.07 M/mm3 (4.2-5.4); Red Cell Distribution Width 14.3 % (11.5-14.5); White Blood Count 11.1 K/mm3 (4.5-10.0)
[2022-06-10] MEDS: OXYTOCIN 30 UNITS/NS 500 ML 30 UNITS/500 ML BAG IV CONT (07:36)
[2022-06-10] MEDS: LACTATED RINGERS 1,000 ML 125 ML IV CONT ×2 (07:37→13:56)
--- NOTE | 2022-06-10 08:34 | PM.IMHP ---
H&P: HPI History of Present Illness Date/Time: 06/10/22 08:34 Chief Complaint: induction of labor Narrative: patient is a 31-year-old G 2p1 at 39 weeks by Last menstrual period of 09/09/2021 with an EDC of June 16 consistent with a 7 week ultrasound. Patient admitted for medical induction of labor. course significant for conceived with IUD in. IUD was removed when was confirmed. course significant for BMI greater than 40 she has had normal testing. Ultrasound that showed large for gestational age. Labs reviewed. GBS negative. Review of Systems Review of Systems: All systems reviewed & are unremarkable except as noted in HPI and below Constitutional: Constitutional: Reports no additional constitutional complaints and Denies headache(s) Eyes: Eyes: Denies spots in vision ENT: Reports system reviewed and no additional complaints, except as documented and Denies headache(s) Cardiovascular: Cardiovascular: Denies chest pain and Denies dyspnea Respiratory: Respiratory: Denies dyspnea Gastrointestinal: Gastrointestinal: Reports no additional gastrointestinal complaints Genitourinary: Genitourinary: Reports amenorrhea Musculoskeletal: Musculoskeletal: Reports no additional musculoskeletal complaints Integumentary/Breasts: Skin/Breast: Denies breast mass and Denies rash Neurologic: Denies headache(s) Psychiatric: Psychiatric: Reports no additional psychiatric complaints PMFSH Past Medical History Medical History Chlamydia Miscarriage d&c Morbid obesity Vaginal delivery Surgical History Surgical History S/P dilation and curettage Family History Family History Mother Diabetes mellitus Social History Social History Smoking status: Never smoker Second hand tobacco smoke exposure: No Substance use: never Lack of Transportation: No Lack of Food: Never True Current Housing: I Have Housing Concerned About Future Housing: No Difficulty Paying Gas/Electric Bills: No Difficulty Paying for Meds: No Currently Unemployed: No Education: High School Diploma/GED Difficulty w/ Childcare or Family Care: No Gender identity (if verbalized by the patient): Female Spiritual care concerns: No Meds Home Medications and Allergies Home Medications Medication Instructions Recorded Confirmed Type prenat.vits,carlos,yrf-aved-lbvbk 1 tablet PO DAILY #90 tabs 11/06/21 06/08/22 Rx Allergies Allergy/AdvReac Type Severity Reaction Status Date / Time No Known Allergies Allergy Verified 06/06/22 11:02 Vital Signs Vital Signs - 24 hr 06/10/22 06:58 06/10/22 07:30 06/10/22 07:46 Temperature 97.2 F L Pulse Rate 106 H 94 99 Blood Pressure 123/83 124/99 H 124/73 06/10/22 08:01 06/10/22 08:16 06/10/22 08:31 Temperature Pulse Rate 80 122 H 98 Blood Pressure 116/77 116/96 H 112/73 Exam Const: General: no acute distress Eyes: General: appearance normal, both eyes and all related structures Neck: Neck: normal visual inspection Resp: Effort & Inspection: normal respiratory effort Cardio: Rate: regular rate GI: Inspection: normal to inspection Other: Gravid no fundal tenderness no right upper quadrant pain : External Female Exam: normal external appearance Other: Cervix 3 70% -2 Skin: General skin exam: no rashes or lesions noted Neuro: Cognition (Neuro): normal cognition Extrem: General: normal to inspection Psych: Mental Status: mental status grossly normal H&P: Results Labs Labs: Short CBC 06/10/22 Range/Units 07:18 WBC 11.1 H (4.5-10.0) K/mm3 Hgb 11.1 L (12.0-15.0) g/dL Hct 34.2 L (37.0-47.0) % Plt Count 257 (150-375) k/mm3 Assessment and Plan Ass
--- NOTE | 2022-06-10 08:42 | PM.OBPNLAB ---
Pain Control Date/time seen: 06/10/22 6745 Comments: heart tones 125 category 1 tracing occasional contractions cervix 370- 2 assisted rupture of membranes clear. Continue Pitocin induction.
[2022-06-10] MEDS: LACTATED RINGERS 1,000 ML 999 ML IV CONT ×2 (09:19→10:42)
[2022-06-10 09:21] LABS: Rapid Plasma Reagin Non-Reactive (NonReactive)
--- NOTE | 2022-06-10 09:39 | WPDANESEPP ---
Anes - Eval Pre Procedure Procedure: Labor Pain Management Date/Time: 06/10/22 09:39 Surgeon: Jovana Preop Diagnosis: Pain during labor Pre Op Diagnosis: Induction of Labor Patient Data Age: 31 Gender: F Height: 1.7 m Weight: 133.2 kg Last Vital Signs Temp 97.6 F 06/10/22 08:35 Pulse 75 06/10/22 09:31 BP 106/92 H 06/10/22 09:31 Pulse Ox 98 06/10/22 09:37 Allergies Allergy/AdvReac Type Severity Reaction Status Date / Time No Known Allergies Allergy Verified 06/06/22 11:02 Home Medications Medication Instructions Recorded Confirmed Type prenat.vits,carlos,zwb-idse-wjqpx 1 tablet PO DAILY #90 tabs 11/06/21 06/08/22 Rx Laboratory Tests 06/10/22 06/10/22 06/10/22 07:18 07:18 07:18 WBC 11.1 K/mm3 H K/mm3 (4.5-10.0) RBC 4.07 M/mm3 L M/mm3 (4.2-5.4) Hgb 11.1 g/dL L g/dL (12.0-15.0) Hct 34.2 % L % (37.0-47.0) MCV 84.0 fl fl (80-100) MCH 27.3 pg pg (26-34) MCHC 32.5 g/dl g/dl (32-36) RDW 14.3 % % (11.5-14.5) Plt Count 257 k/mm3 k/mm3 (150-375) MPV 10.0 fl fl (7.4-10.4) Immature Gran % (Auto) 0.6 % H % (0-0.5) Neut % (Auto) 69.6 % % (45.5-73.1) Lymph % (Auto) 21.5 % % (18.3-44.2) Crowley % (Auto) 6.0 % % (2.6-8.5) Eos % (Auto) 1.9 % % (0-4.4) Baso % (Auto) 0.4 % % (0.2-1.2) Lymph # (Auto) 2.38 K/mm3 K/mm3 (0.9-3.2) Crowley # (Auto) 0.7 K/mm3 H K/mm3 (0.1-0.6) Eos # (Auto) 0.2 K/mm3 K/mm3 (0-0.3) Baso # (Auto) 0.0 K/mm3 K/mm3 (0.0-0.1) Abs Immat Gran (auto) 0.07 K/mm3 H K/mm3 (0.00-0.031) Absolute Neuts (auto) 7.7 K/mm3 H K/mm3 (1.3-6.7) Absolute Nucleated RBC 0.0 K/mm3 K/mm3 (0.0-0.012) Nucleated RBC % 0.0 % % (0.0-0.2) RPR Non-reactive (NonReactive) Blood Type A Positive Antibody Screen Negative Patient hx anesthesia problems: none Family hx anesthesia problems: none Prior surgeries: D&C Results Review: All pre-operative results and documents have been reviewed as part of the pre-operative evaluation. [facility] Past Medical History Medical History Chlamydia Miscarriage d&c Morbid obesity Vaginal delivery Surgical History Surgical History S/P dilation and curettage Family History Family History Mother Diabetes mellitus Social History Social History Smoking status: Never smoker Second hand tobacco smoke exposure: No Substance use: never Lack of Transportation: No Lack of Food: Never True Current Housing: I Have Housing Concerned About Future Housing: No Difficulty Paying Gas/Electric Bills: No Difficulty Paying for Meds: No Currently Unemployed: No Education: High School Diploma/GED Difficulty w/ Childcare or Family Care: No Gender identity (if verbalized by the patient): Female Spiritual care concerns: No Exam Day of Procedure 06/10/22 09:39
--- NOTE | 2022-06-10 14:21 | PM.OBPNLAB ---
Pain Control Date/time seen: 06/10/22 14:21 Comments: fht 125, cat 1. 6/80/-1. Continue pitocin.
[2022-06-10] MEDS: OXYTOCIN 30 UNITS/NS 500 ML 30 UNITS/500 ML BAG 125 UNITS IV CONT (15:56)
--- NOTE | 2022-06-10 16:40 | PM.OBPRVD ---
OB - Delivery Note Procedure Delivery date: 06/10/22 Events: Macrosomia Induction method: Per Misoprostol Protocol Delivery augmentation: Rupture of Membranes Delivery monitor: External FHT and Internal Uterine Route of delivery: Laceration Description: Perineal - 1st Degree and Perineal - 4th Degree Delivery repair: vicryl (3.0 vicryl) Specimen: No Quantitative Blood Loss (ml): 150 Anesthesia type: Epidural Disposition: Floor Narrative: Patient admitted for MIL with Pitocin. She had AROM clear. She progressed to active labor. Epidural was placed as requested. IUPC was placed to monitor contractions better. She progressed to complete and pushed twice and delivered a male infant, apgars 8,8, 8lbs 9oz. She sustained a first degree perineal laceration. Repaired with 3.0 vicryl. Baby Date of : 06/10/22 Time of : 15:33 Weeks of gestation at delivery: 39 gender: Male Weight (pounds): 8 Weight (ounces): 9 presentation: vertex position: Left Occiput Anterior Placenta delivery description: Spontaneous Cord Vessel Description: 3 Vessels score one minute: 8 score five minutes: 8 AMG Delivery Billing Delivery Delivery: Delivery Charge
--- NOTE | 2022-06-10 18:24 | OBPPTRN ---
Patient transferred to post room #282 via wheelchair. Support person present. Oriented to unit, room, information board, rooming in, admission packet and security measures. Patient verbalizes understanding. with patient.
[2022-06-10] MEDS: IBUPROFEN 600 MG TABLET PO (20:40)
[2022-06-10] MEDS: BENZOCAINE 20% AER SPR (*SP) 56 GM CAN 1 SPRAY TOPICAL (20:40)
[2022-06-10] MEDS: DIBUCAINE 1% OINTMENT 30 GM TUBE 1 APPLIC TOPICAL (20:40)
[2022-06-10] MEDS: DOCUSATE SODIUM 100 MG CAPSULE PO (20:40)
[2022-06-11] MEDS: ACETAMINOPHEN 325 MG TABLET 650 MG PO ×2 (01:19→07:13)
[2022-06-11] MEDS: IBUPROFEN 600 MG TABLET PO ×2 (03:53→12:15)
[2022-06-11 03:55] VITALS: BP 111/55; PULSE 77; RESP 16; TEMP 36.2; O2SAT 100
[2022-06-11 04:35] LABS: Hematocrit 30.5 % (37.0-47.0); Hemoglobin 9.8 g/dL (12.0-15.0)
[2022-06-11 07:00] VITALS: PULSE 65; RESP 16; O2SAT 100
[2022-06-11] MEDS: DOCUSATE SODIUM 100 MG CAPSULE PO (07:13)
[2022-06-11] MEDS: POLYSACCHARIDE IRON COMPLEX 150 MG CAPSULE PO (07:14)
[2022-06-11] MEDS: MULTIVIT/MIN/PREN/FOL AC/IRON TABLET 1 TAB PO (07:14)
--- NOTE | 2022-06-11 07:37 | WPDANLDPN2 ---
Anes-Prog Note L&D Date/Time: 06/11/22 07:37 Comfortable throughout: labor and delivery Neuraxial method: epidural Epidural/Spinal procedure site: clean & non-tender Neuro status: Neuro function grossly intact. Cardiovascular status: normal Respiratory status: normal Airway patency: baseline Mental status: baseline Post-Op hydration status: normal Vital Signs: Last Vital Signs Temp 36.2 C L 06/11/22 03:55 Pulse 77 06/11/22 03:55 Resp 16 06/11/22 03:55 BP 111/55 L 06/11/22 03:55 Pulse Ox 100 06/11/22 03:55 O2 Del Method Room Air 06/10/22 23:00 Pain score (VAS): 10 I/O: Intake & Output 06/10/22 06/10/22 06/11/22 15:59 23:59 07:59 Intake Total 3500 Output Total 1200 Balance 3500 -1200 Post-procedural complaints: none Patient feedback: Patient satisfied with anesthetic care.
[2022-06-11 08:00] VITALS: BP 131/87; PULSE 65; RESP 16; TEMP 36.3; O2SAT 100
--- NOTE | 2022-06-11 11:45 | PC.NURSE ---
[id number] Introductions were made, then consulted with patient to assess needs related to . Mother with a history of well led the conversation with her?plans to breastfeed?her and the?experience so far. Mother states she is well with no pain and request to be measured for a flange fit. Mother measures 17mm at this time and we discussed the 21mm flange, however, continue to assess if her nipples enlarge with and adjust flange if the nipple rubs the barrel of the flange. Instructions given on cleaning, care, usage, that there should be no pain, pumping schedule for milk production, collection, and storage of human milk. Patient was assessed for correct placement, flange size, to pump for comfort and nipple stretching/stimulation for adequate milk production every 3 hours (8 times in 24 hours) 1-2 times at night. Mother is and wanted this information for later. Referred to the mom/baby guide. Mother works well with her infant with encouragement and education. Mother was concerned that her infant wasn't opening up wide enough and requested a latch evaluation. Encouraged understanding of the benefits of skin to skin (demonstrating unwrapping infant and placing upright on her chest), stimulating with massage touch, changing positions to encourage wakefulness, how to watch for early feeding cues, responsive feeding, feeding on demand (aiming for 8-12 times in 24 hours, about every 2-3 hours), milk production, building/maintaining a milk supply, duration of feeding, signs of adequate intake/output and how to record on the feeding sheet. Reviewed positioning and ear, shoulder, hip alignment, supporting the breast to facilitate a deep latch, asymmetrical latch (off-center), leading with the chin with a big, open, wide gape and body close to mother. Infant latched optimally to the left breast in cross cradle/laid-back position. Education given to mother of how to visualize suck/swallow ratios and listen for drinking at the breast. was able to maintain latch without discomfort to mother. Nipple care reviewed with optimal latch and good positioning. Reviewed with mother stimulating for actively . Resources used to facilitate learning were used with the visual handouts, mom and baby guide. Mother voiced understanding of skin to skin, stimulating with massage touch, responsive feedings, talking to infant to encourage if it has been 2 -2.5 hours since the start of the last , to call if infant does not latch, or if there is discomfort with . Resources provided for inpatient/outpatient with office number on the feeding sheet and the mom/baby guide. Mother voiced understanding of information, demonstrated learning and will call if there is a request for assistance. Reported to primary RN.
[2022-06-11 12:10] VITALS: BP 119/71; PULSE 73; RESP 16; TEMP 37.2; O2SAT 100
[2022-06-11 12:17] VITALS: PULSE 73; RESP 16; O2SAT 100
--- NOTE | 2022-06-11 13:00 | P.PNOB_ITS ---
OB - PN: Subj Subjective Date/time seen: 06/11/22 13:00 Patient comments: pain well controlled, tolerating diet and other (Decreasing lochia.) baby status: doing well and nursing well [place] feeding status: exclusively breast feeding OB - PN: Obj Data Labs 06/11/22 04:04 Labs: Laboratory Results - last 24 hr 06/11/22 04:04 Hgb 9.8 L Hct 30.5 L OB - PN A/P Plan day: 1 Plan: routine care Comments: Patient doing well. Asymptomatic anemia. She wants to be discharged today. Will discharge. Discharge precautions discussed. Time Spent With Patient Time: Total time spent is greater than 50% in coordination of care (as documented) at patient's floor/unit and/or counseling patient: Review of Systems Review of Systems: All systems reviewed & are unremarkable except as noted in HPI and below Constitutional: Constitutional: Reports no additional constitutional complaints Cardiovascular: Cardiovascular: Denies dyspnea Respiratory: Respiratory: Denies dyspnea Gastrointestinal: Gastrointestinal: Reports no additional gastrointestinal complaints and Denies abdominal pain Genitourinary: Genitourinary: Reports no additional female genitourinary complaints Exam Const: General: no acute distress, alert and awake Resp: Effort & Inspection: normal respiratory effort GI: GI Palp: No Tenderness to palpation present (GI) Other: Fundus nontender, below umbilicus Psych: Appearance: grossly normal Affect: normal affect Other: Abd: fundus firm below umbilicus, nontender Perineum: healing Ext: nontender
[2022-06-12 09:52] VITALS: BP 123/75; PULSE 88; RESP 16; TEMP 36.5; O2SAT 99
--- NOTE | 2022-07-05 10:47 | PM.OBDSVD ---
DS: Admitting Diagnosis Discharge Date 06/11/22 Admitting Diagnosis Medical induction of labor DS: Discharge Diagnosis Discharge Diagnosis Plan Intrauterine delivered OB - DS: Summary Hospital Course Hospital Course: Patient admitted for [facility] with Pitocin. She had an uncomplicated vaginal delivery and first degree perineal laceration. She did well . Baby did well . She was discharged to home on day 1. Discharge precautions discussed. OB Procedures : NST and Ultrasound OB Procedures Intrapartum: Spontaneous Vag Delivery OB Procedures: : None Peripartum Data Infant Delivery Method: Natural Vaginal Laceration Description: Perineal - 1st Degree complications: none Status at Discharge Functional status at discharge: independent ambulation Time Spent with Patient Time attestation: Total time spent providing and/or coordinating discharge services: Exam Const: General: cooperative Orientation/consciousness: oriented to person, oriented to place and oriented to time HENMT: Face/Nose/Sinus: Normal external nose present Eyes: General: appearance normal, both eyes and all related structures Resp: Effort & Inspection: normal respiratory effort GI: Inspection: normal to inspection Skin: General skin exam: normal color Neuro: General: oriented to person, oriented to place and oriented to time Extrem: General: normal to inspection and no calf tenderness Psych: Appearance: grossly normal Mental Status: mental status grossly normal Discharge Plan Discharge Attending physician on discharge: Ariel Carrion Consulting providers: Roya Webster ; Henny Warner Discharging Clinician: Ariel Carrion Anticipated Discharge Date/Time: 06/11/22 13:02 Patient Disposition: Home, Self-Care Activity: may shower, no straining and pelvic rest Diet: regular Discharge Instructions: Education: Mom and Baby Guide Given to: Mother Follow-Up: Call your delivering provider's office for an appointment to be seen in: 4-6 Weeks Mom and baby should come to the [facility] for the follow-up appointment. Appointment Date/Time: June 12, 2022 at 10:00 am What to expect at your follow-up visit: Blood Pressure Check Physical Assessment Call [phone] if you are unable to keep your appointment time. BREAST CARE: * Wear a snug supportive bra. * For engorgement discomfort: Breast Feeding: * Apply warm moist washcloths * Express milk as needed to relieve engorgement * Wear loose clothing Bottle Feeding: * May apply ice packs * For sore nipples: * Identify correct latch-on * Apply warm moist washcloths before and after nursing * Air dry nipples after nursing * May apply Lansinoh cream to nipples EPISIOTOMY/PERINEAL CARE: * Until bleeding stops, use your erick bottle after urinating * Change your pad frequently throughout the day * You may take sitz baths several times a day (fill your bathtub with warm water and soak for 20 minutes.) Do NOT bathe in the water * No tub baths until seen by your physician - You may shower ACTIVITY: * Rest as much as possible. * Do not exercise or lift anything heavier than your baby (such as laundry or other children.) * Avoid stairs or driving as much as possible. * Do not put anything into the vagina. No douching, tampons, or sexual activity until seen by physician. NOTIFY PHYSICIAN IF YOU HAVE ANY QUESTIONS OR IF ANY OF THE FOLLOWING SYMPTOMS OCCUR: * If your vaginal area becomes red, swollen, or more painful than what you have experienced in the hospital. * If your vaginal bleeding becomes foul smelling. * If your vaginal bleeding becomes more heavy than a period or if your bleeding changes from pink to bright red. However, you may pass an occasional walnut-sized clot once or twice
== END 2022-06-11 17:30 | disposition home or self-care (01) | DRG 807 ==
LOC: ANHLDR 06:41 → ANHOB2 18:36
PROVIDERS: Admitting Provider Obstetrics & Gynecology; Visit Provider Obstetrics & Gynecology
DX: O36.63X0 Maternal care for excessive fetal growth, third trimester, not applicable or unspecified (principal); Z37.0 Single live birth; O70.0 First degree perineal laceration during delivery; O99.214 Obesity complicating childbirth; E66.01 Morbid (severe) obesity due to excess calories; O76 Abnormality in fetal heart rate and rhythm complicating labor and delivery; Z3A.39 39 weeks gestation of pregnancy
CPT/HCPCS: 36415; 85014; 85018; 85025; 86592; 86850; 86900; 86901; A9270; J2590; J2795; J7120

== ENCOUNTER 2022-08-01 15:26 | Outpatient (CLI) | payer OTHER, SELFPAY ==
--- NOTE | ~2022-08-01 | US_ITS ---
EXAMINATION: US thyroid DATE: 08/01/2022 15:48 INDICATION: Nontoxic goiter, unspecified. TECHNIQUE: Multiple ultrasound images of the thyroid were obtained. COMPARISON: None. FINDINGS: The right thyroid lobe measures 5.2 x 1.4 x 1.6 cm. The left thyroid lobe measures 4.7 x 1.4 x 1.8 c m. In the right thyroid lobe, there is a 7 mm solid, hypoechoic, wider than tall nodule with ill-def ined margin without echogenic foci (TI-RADS TR4). IMPRESSION: 1. Small thyroid nodule, likely not clinically significant. No follow-up is needed. Reviewed, dictated and finalized at location A. ADVISOR IMPRESSION: 1. Small thyroid nodule, likely not clinically significant. No follow-up is nee ded.
== END 2022-08-01 15:27 ==
PROVIDERS: PCP Registered Nurse; Visit Provider Registered Nurse
DX: E04.1 Nontoxic single thyroid nodule (principal)
CPT/HCPCS: 76536